=== PATIENT | female | born 1935 | race Caucasian/White ===

== ENCOUNTER 2016-11-16 09:28 | Inpatient (IN) | payer MEDICARE, OTHER ==
--- NOTE | ~2016-11-16 | DS ---
Discharge Summary [facility] [address] [place]. [address] NAME: MARY MAHONEY : 33 STATUS : DIS IN PAT#: [id number] AGE: 81 ADM/REG DATE : 11/16/16 MR#: [id number] REPORT SERV DATE: 11/18/16 DICTATED BY: JADE LUCERO DATE: 11/17/16 REPORT STATUS : Draft TRANSCRIBED BY: MODL DATE: 11/17/16 ADMISSION DATE: 11/16/2016 DISCHARGE DATE: 11/17/2016 DATE OF ADMISSION TO [facility]: 11/14/2016. DATE OF TRANSFER TO [facility]: 11/16/2016. DATE OF DISCHARGE HOME: 11/17/2016. DISCHARGE DIAGNOSES: 1. Angina with abnormal stress test. 2. Three-vessel red devil coronary artery disease with patent stent, site distal right coronary artery. Patent left internal mammary to left anterior descending artery graft. Occluded sequential saphenous vein graft at origin. Occluded saphenous vein graft at origin. 3. Mildly depressed left ventricular systolic function with ejection fraction of 45%. 4. Hypertension. 5. Uncontrolled diabetes with hyper and hypoglycemia with hemoglobin A1c of 10.8. OPERATIONS AND PROCEDURES: Cardiac catheterization 11/16/2016, Dr. Cheney. PRESENT ILLNESS: This is an 81-year-old white female who was admitted to [facility] on 11/14/2016, with substernal chest pain in the setting of known coronary disease status post CABG. ADDITIONAL HISTORY: Per Dr. Lopez. PHYSICAL EXAMINATION: Per Dr. Lopez. ADMISSION LABORATORY: Per Dr. Lopez. Her hospital course at [facility] is as outlined on interim summary dictated by Dr. Fernando. Briefly, she had a stress test that was intermediate risk. Cardiology consultation was obtained and she was seen by Dr. Gamble. Cardiac catheterization was recommended. Hospital course at [place]: She was taken to [facility] on 11/16/2016. Cardiac catheterization was done with findings as noted. Medical therapy was recommended with risk factor modification. Additional medications added to her home medication list included Norvasc. When seen by the undersigned, post cath, she has had two episodes of hypoglycemia requiring D50 one in the morning when her blood sugar was 26, later in the afternoon when her blood Discharge Summary [facility] [address] [place]. [address] NAME: MARY MAHONEY : 33 STATUS : DIS IN PAT#: [id number] AGE: 81 ADM/REG DATE : 11/16/16 MR#: [id number] REPORT SERV DATE: 11/18/16 DICTATED BY: JADE LUCERO DATE: 11/17/16 REPORT STATUS : Draft TRANSCRIBED BY: JOVANNI DATE: 11/17/16 sugar was 29. She was asymptomatic at that time. She was seen by al, which was 1741 hours. Her son from [place] was present. Discharge was not thought to be safe. She was seen again today, 11/17/2016, at 0940 hours. She was not having chest pain. She had had an episode of hypoglycemia on her morning labs at 0415 hours at 44 despite having her insulin reduced 30%. She was treated. Subsequent blood sugars 85, 80, and 96. At this point in her hospitalization, it was felt she had achieved a level of improvement and stability where she could be safely discharged home. She will have home health care for home evaluation, PT evaluation and treatment, medication reconciliation, and diabetes management. She will follow up with [facility] Cardiology, Dr. Gamble in three to four weeks. She will see her primary care physician, Dr. Dandre Landaverde on 11/26/2016, at 0930 hours. She was to be seen by Nutrition Services prior to discharge for diet recommendations. Her discharge medications pending outpatient followup will be Norvasc 5 mg daily, aspirin 325 mg daily, insulin Lantus reduced from 30 units at bedtime to 15 units, Prinivil 5 mg twice daily, Lopressor 25 mg twice daily, Zocor 40 mg daily, Pepcid 40 mg daily as needed, and glipizide 5 mg a.m. only. Discharge BMP at 0415 hours: Sodium 141, potassium 4, chloride 109, CO2 of 28, BUN 19, creatinine 0.83, glucose 44, calcium 8.1, phosphorus 3.7. CBC: White count 6.2, hemoglobin 12, platelets 139,000. Accu-Chek at 1338 hours, 200. Her son will be with the patient for the next three weeks. Another family member will be present for an additional two weeks. Additional home safety measures to be implemented along with solicitation for additional caregivers in her family's absence. Discharge time greater than 30 minutes. DD/MODL Jade Lucero M.D. / [id number] CC: Meg Hicks M.D. Van Stephen Monroe Jr., M.D.
[~2016-11-16 09:28] MED LIST: ASAEC PO; GLUCOTROL5 PO; LANTUS SC; LOP25 PO; PEPCID40 MG PO; PRIN5 PO; ZOCOR40 PO
[2016-11-17 04:27] LABS: BASOPHILS 0.2 %; BASOPHILS ABSOLUTE 0.01 10/3/uL (0.0-0.16); EOSINOPHILS ABSOLUTE 0.31 10/3/uL (0.0-0.53); HEMATOCRIT 35.7 % (36.0-48.0); LYMPHOCYTES 22.6 %; LYMPHOCYTES ABSOLUTE 1.39 10/3/uL (0.67-4.30); MEAN CORPUS HGB CONC 33.6 g/dL (32.0-36.0); MEAN CORPUSCULAR HEMOGLOB 29.9 pg (26.0-34.0); MEAN CORPUSCULAR VOLUME 88.8 fL (80-100); MEAN PLATELET VOLUME 11.6 fL (9.2-13.0); MONOCYTES 9.1 %; MONOCYTES ABSOLUTE 0.56 10/3/uL (0.21-1.20); NEUTROPHILS 63.1 %; NEUTROPHILS ABSOLUTE 3.89 10/3/uL (2.02-8.40); PLATELET COUNT 139 10/3/uL (150-400); RBC DISTRIBUTION WIDTH 13.6 % (12.0-16.0); RED CELL COUNT 4.02 10/6/uL (4.0-5.6)
[2016-11-17 04:30] LABS: MANUAL DIFF NO %; WHITE BLOOD CELLS 6.2 10/3/uL (4.5-10.5)
[2016-11-17 04:42] LABS: BUN (BLOOD UREA NITROGEN) 19 MG/DL (6-23); CALCIUM, SERUM 8.1 MG/DL (8.5-10.4); CHLORIDE, SERUM 109 MMOL/L (96-112); CO2 (CARBON DIOXIDE) 28 MMOL/L (24-34); CREATININE 0.83 MG/DL (0.55-1.02); GFR AFRICAN AMERICAN 76 ML/MIN (>=60); GFR NON AFRICAN AMERICAN 66 ML/MIN (>=60); SODIUM, SERUM 141 MMOL/L (135-148)
[2016-11-17 04:47] LABS: GLUCOSE, SERUM 44 MG/DL (60-99)
[2016-11-17 05:54] LABS: ALBUMIN 2.9 G/DL (3.5-5.0); PHOSPHORUS, SERUM 3.7 MG/DL (2.5-4.5)
[2016-11-17] MEDS ORDERED: NORV5 PO (13:06)
== END 2016-11-17 15:44 | disposition home or self-care (01) | DRG 287 ==
LOC: CORLMH 09:28 → SSU1 11:45
PROVIDERS: Internal Medicine
PROC: B2151ZZ Fluoroscopy of Left Heart using Low Osmolar Contrast (ICD-10-PCS; principal; 2016-11-16)
PROC: B2131ZZ Fluoroscopy of Multiple Coronary Artery Bypass Grafts using Low Osmolar Contrast (ICD-10-PCS; 2016-11-16)
PROC: B2181ZZ Fluoroscopy of Left Internal Mammary Bypass Graft using Low Osmolar Contrast (ICD-10-PCS; 2016-11-16)
PROC: B2111ZZ Fluoroscopy of Multiple Coronary Arteries using Low Osmolar Contrast (ICD-10-PCS; 2016-11-16)
PROC: 4A023N7 Measurement of Cardiac Sampling and Pressure, Left Heart, Percutaneous Approach (ICD-10-PCS; 2016-11-16)
DX: I25.110 Atherosclerotic heart disease of native coronary artery with unstable angina pectoris (principal); T82.9XXA Unspecified complication of cardiac and vascular prosthetic device, implant and graft, initial encounter; E11.65 Type 2 diabetes mellitus with hyperglycemia; I10 Essential (primary) hypertension; E78.00 Pure hypercholesterolemia, unspecified; Z66 Do not resuscitate; E78.2 Mixed hyperlipidemia; Z95.1 Presence of aortocoronary bypass graft; Z95.5 Presence of coronary angioplasty implant and graft; Z82.49 Family history of ischemic heart disease and other diseases of the circulatory system; Z88.2 Allergy status to sulfonamides; Z88.5 Allergy status to narcotic agent; I25.2 Old myocardial infarction; Z79.4 Long term (current) use of insulin
CPT/HCPCS: 71010; 78452; 80048; 80061; 80069; 80076; 82550; 82947; 82962; 83036; 83690; 83735; 84484; 85025; 85610; 85730; 93005; 93017; 93306; 93459; 99152; 99153; 99285; A9270-GY; A9502; C1760; C1769; C1894; J0280; J2250; J2405; J2785; J3010; Q9967